=== PATIENT | female | born 1985 | race African-American/Black ===

== ENCOUNTER 2022-03-29 22:22 | Observation (INO) | payer OTHER ==
[2022-03-29 23:24] LABS: #Basophils 0.1 10x3/uL (0.0-0.2); #Eosinphils 0.2 10x3/uL (0.0-0.5); #Monocytes 0.7 10x3/uL (0.0-1.1); #Neutrophils 5.1 10x3/uL (1.5-8.4); %Basophils 0.6 % (0.0-2.0); %Eosinophils 2.6 % (0.0-6.0); %Lymphocytes 28.2 % (18.0-47.0); %Neutrophils 60.1 % (40.0-75.0); Hemoglobin 11.1 g/dL (12.0-15.5); Mean Corpuscular HGB CONC 30.5 g/dL (32.0-36.0); Mean Corpuscular Hemoglobin 24.7 pg (27.0-33.0); Mean Corpuscular Volume 80.9 fl (81.6-98.3); Mean Platelet Volume 11.3 fl (7.4-10.4); Platelet Count 252 10x3/uL (150-450); White Blood Cell (WBC) Count 8.5 10x3/uL (3.5-10.5)
[2022-03-29 23:28] LABS: BHCG - Serum Negative (NEGATIVE); Pregs Control Background? CLEAR/WHITE (CLR/WHITE); Pregs Control Bar Appear? YES (CONTROL BAR)
[2022-03-29 23:34] LABS: ALT (SGPT) 13 U/L (8-55); AST (SGOT) 16 U/L (5-34); Alkaline Phosphatase 75 U/L (40-110); Anion Gap 13 mmol/L (10-20); BUN (Urea Nitrogen) 14 mg/dL (7.0-18.7); Bilirubin, Total 0.4 mg/dL (0.2-1.2); Calc. Creatinine Clearance 0 mL/min (70-130); Calcium 8.9 mg/dL (7.8-10.44); Carbon Dioxide 28 mmol/L (22-29); Chloride 99 mmol/L (98-107); Globulin 3.7 g/dL (2.4-3.5); Glucose 107 mg/dL (70-105); Potassium 3.2 mmol/L (3.5-5.1); Protein, Total 7.7 g/dL (6.0-8.3); Sodium 137 mmol/L (136-145)
[2022-03-30] MEDS ORDERED: Aspirin Chewable 81 MG TAB ONE (00:10)
[2022-03-30] MEDS ORDERED: Enoxaparin Sodium 60 MG/0.6 ML SYRINGE ONE (00:19)
[2022-03-30] MEDS ORDERED: Enoxaparin Sodium 100 MG/ML SYRINGE ONE (00:19)
[2022-03-30] MEDS ORDERED: Nitroglycerin 2% Ointment 1 INCH/1 GM Packet ONE (00:20)
[2022-03-30] MEDS ORDERED: HYDROcodone/Acetaminophen 5/325 mg Tablet PO PRN (00:25)
[2022-03-30] MEDS ORDERED: Ondansetron PF 4 MG/2 ML Vial IVP PRN (00:25)
[2022-03-30] MEDS ORDERED: Acetaminophen 325 MG TAB PO PRN (00:25)
[2022-03-30] MEDS ORDERED: Calcium Carbonate 500 MG ChewTAB PO PRN (00:25)
[2022-03-30] MEDS ORDERED: Senokot S 8.6-50 MG TAB PO PRN (00:25)
[2022-03-30] MEDS ORDERED: Guaifenesin DM 100-10/5 ML UDCUP PO PRN (00:25)
[2022-03-30] MEDS ORDERED: Nitroglycerin 0.4 MG TAB (25 Tab Bottle) SL PRN (00:28)
[2022-03-30] MEDS ORDERED: hydrALAZINE 20 MG/ML VIAL SLOW IVP PRN (00:30)
[2022-03-30] MEDS ORDERED: Potassium Chloride 20 MEQ TAB PO SCH ×2 (00:45→09:15)
[2022-03-30 01:55] VITALS: BMI 55.4
[2022-03-30 02:23] LABS: SARS-CoV-2 NAA Rapid Test Not Detected (NotDetected)
[2022-03-30 06:15] LABS: Anion Gap 14 mmol/L (10-20); BUN (Urea Nitrogen) 13 mg/dL (7.0-18.7); Calc. Creatinine Clearance 231 mL/min (70-130); Calcium 9.4 mg/dL (7.8-10.44); Carbon Dioxide 27 mmol/L (22-29); Cardiac Risk 6.9 (Less than 4.5); Chloride 100 mmol/L (98-107); Cholesterol 201 mg/dl (< 200 Desired); Glucose 128 mg/dL (70-105); HDL Cholesterol 29 mg/dL (>60 Neg Risk); LDL Cholesterol, Calculated 128 mg/dL; Potassium 3.2 mmol/L (3.5-5.1); Sodium 138 mmol/L (136-145); Triglycerides 221 mg/dL (Less than 150)
[2022-03-30 06:31] LABS: CKMB 1.7 ng/mL (0-6.6)
[2022-03-30] MEDS ORDERED: Lisinopril 20 MG TAB PO SCH (09:00)
[2022-03-30] MEDS ORDERED: Famotidine 20 MG TAB PO SCH (09:00)
[2022-03-30] MEDS ORDERED: Hydrochlorothiazide 25 MG TAB PO SCH ×2 (09:00)
[2022-03-30] MEDS ORDERED: Lisinopril/Hydrochlorothiazide 20 mg/12.5 mg Tablet PO SCH (09:00)
[2022-03-30] MEDS ORDERED: Metoprolol Tartrate 25 MG TAB PO SCH (09:00)
[2022-03-30] MEDS ORDERED: Losartan Potassium 50 MG TAB PO SCH (09:00)
[2022-03-30 09:15] LABS: CKMB 1.8 ng/mL (0-6.6)
[2022-03-30] MEDS: Ferrous Sulfate 325 MG TAB PO SCH ×2 (09:44→17:07)
[2022-03-30] MEDS ORDERED: Nitroglycerin 2% Ointment 1 INCH/1 GM Packet TOP SCH ×2 (10:15→21:00)
[2022-03-30 13:28] LABS: Hemoglobin A1c 5.9 % (4.0-6.0)
[2022-03-30 16:39] VITALS: BP 134/80; TEMP 97.9
[2022-03-30] MEDS ORDERED: Enoxaparin Sodium 40 MG/0.4 ML SYRINGE SC SCH (21:00)
[2022-03-31] MEDS ORDERED: Aspirin 81 mg Enteric Coated Tablet PO SCH (09:00)
== END 2022-03-30 17:52 | disposition home or self-care (01) ==
LOC: CSHERS 22:22 → CSHTELE 03-30 01:38
PROVIDERS: ADMIT Student in an Organized Health Care Education/Training Program; ATTEND Internal Medicine
DX: R07.2 Precordial pain (principal); I10 Essential (primary) hypertension; E87.6 Hypokalemia; Z91.19 Patient's noncompliance with other medical treatment and regimen; E66.01 Morbid (severe) obesity due to excess calories; D50.9 Iron deficiency anemia, unspecified; K21.9 Gastro-esophageal reflux disease without esophagitis; Z79.899 Other long term (current) drug therapy; Z20.822 Contact with and (suspected) exposure to COVID-19
CPT/HCPCS: 36415; 71045; 80048; 80053; 80061; 82553; 83036; 84443; 84484; 84703; 85025; 93005; 93010; 93306; 96372; G0378; J1650; U0002

== ENCOUNTER 2023-01-11 21:10 | Observation (INO) | payer OTHER ==
[2023-01-11] MEDS ORDERED: Aspirin Chewable 81 MG TAB ONE (21:34)
[2023-01-11] MEDS ORDERED: Nitroglycerin 0.4 MG TAB 1 EACH ONE (21:35)
[2023-01-11 21:54] LABS: #Eosinphils 0.2 10x3/uL (0.0-0.5); #Monocytes 0.5 10x3/uL (0.0-1.1); #Neutrophils 4.9 10x3/uL (1.5-8.4); %Basophils 0.4 % (0.0-2.0); %Eosinophils 2.8 % (0.0-6.0); %Lymphocytes 28.2 % (18.0-47.0); %Monocytes 5.9 % (0.0-10.0); %Neutrophils 62.3 % (40.0-75.0); Hemoglobin 11.5 g/dL (12.0-15.5); Mean Corpuscular HGB CONC 30.7 g/dL (32.0-36.0); Mean Corpuscular Hemoglobin 24.7 pg (27.0-33.0); Mean Corpuscular Volume 80.4 fl (81.6-98.3); Mean Platelet Volume 11.5 fl (7.4-10.4); Platelet Count 218 10x3/uL (150-450); RBC Distribution Width 13.8 % (11.5-14.5); Red Blood Cell (RBC) Count 4.65 10x6/uL (3.90-5.03); White Blood Cell (WBC) Count 7.9 10x3/uL (3.5-10.5)
[2023-01-11 22:00] LABS: ALT (SGPT) 14 U/L (8-55); AST (SGOT) 18 U/L (5-34); Albumin 3.9 g/dL (3.5-5.0); Alkaline Phosphatase 66 U/L (40-110); Anion Gap 16 mmol/L (10-20); BUN (Urea Nitrogen) 12 mg/dL (7.0-18.7); Bilirubin, Total 0.4 mg/dL (0.2-1.2); Calc. Creatinine Clearance 0 mL/min (70-130); Calcium 8.8 mg/dL (7.8-10.44); Carbon Dioxide 24 mmol/L (22-29); Chloride 103 mmol/L (98-107); Estimated GFR 81; Globulin 3.7 g/dL (2.4-3.5); Glucose 137 mg/dL (70-105); Potassium 3.6 mmol/L (3.5-5.1); Protein, Total 7.6 g/dL (6.0-8.3); Sodium 139 mmol/L (136-145)
[2023-01-11 22:23] LABS: CKMB 2.3 ng/mL (0-6.6)
[2023-01-11] MEDS ORDERED: Metoprolol Tartrate 5 MG/5 ML VIAL ONE (22:26)
[2023-01-11] MEDS ORDERED: Senokot S 8.6-50 MG TAB PO PRN (23:44)
[2023-01-11] MEDS ORDERED: Zolpidem Tartrate 5 MG TAB PO PRN (23:44)
[2023-01-11] MEDS ORDERED: Acetaminophen 325 MG TAB PO PRN (23:44)
[2023-01-11] MEDS ORDERED: Calcium Carbonate 500 MG ChewTAB PO PRN (23:44)
[2023-01-11] MEDS ORDERED: Guaifenesin DM 100-10/5 ML UDCUP PO PRN (23:44)
[2023-01-11] MEDS ORDERED: Ondansetron PF 4 MG/2 ML Vial IVP PRN (23:44)
[2023-01-11] MEDS ORDERED: Nitroglycerin 0.4 MG TAB (25 Tab Bottle) SL PRN (23:47)
[2023-01-12 01:38] VITALS: BMI 53.2
[2023-01-12] MEDS ORDERED: Potassium Chloride 20 MEQ TAB PO SCH ×4 (01:45→10:00)
[2023-01-12] MEDS ORDERED: Carvedilol 3.125 MG TAB PO SCH (01:45)
[2023-01-12] MEDS ORDERED: Amlodipine 5 MG TAB PO SCH (01:45)
[2023-01-12 05:55] LABS: Anion Gap 13 mmol/L (10-20); BUN (Urea Nitrogen) 11 mg/dL (7.0-18.7); Calc. Creatinine Clearance 212 mL/min (70-130); Calcium 9.1 mg/dL (7.8-10.44); Carbon Dioxide 24 mmol/L (22-29); Cardiac Risk 5.9 (Less than 4.5); Chloride 105 mmol/L (98-107); Cholesterol 199 mg/dl (< 200 Desired); Estimated GFR 92; Glucose 112 mg/dL (70-105); HDL Cholesterol 34 mg/dL (>60 Neg Risk); LDL Cholesterol, Calculated 134 mg/dL; Magnesium 2.2 mg/dL (1.6-2.6); Potassium 3.4 mmol/L (3.5-5.1); Sodium 139 mmol/L (136-145); Triglycerides 156 mg/dL (Less than 150)
[2023-01-12 06:31] LABS: CKMB 2.1 ng/mL (0-6.6)
[2023-01-12] MEDS ORDERED: Electrolyte Replacement Protocol 1 EACH FS SCH (07:45)
[2023-01-12] MEDS ORDERED: Carvedilol 12.5 MG TAB PO SCH (08:00)
[2023-01-12 08:03] LABS: Pregnancy Test - Urine (BHCG) Negative (Negative); Pregu Control Background? CLEAR/WHITE (CLR/WHITE); Pregu Control Bar Appear? YES (CONTROL BAR)
[2023-01-12 08:32] LABS: SARS-CoV-2 NAA Rapid Test Not Detected (NotDetected)
[2023-01-12] MEDS ORDERED: Metoprolol Tartrate 25 MG TAB PO SCH (09:00)
[2023-01-12] MEDS ORDERED: Losartan Potassium 50 MG TAB PO SCH ×2 (09:00→13:45)
[2023-01-12] MEDS: Amlodipine 5 MG TAB PO SCH (09:04)
[2023-01-12] MEDS: Aspirin 81 mg Enteric Coated Tablet PO SCH (09:05)
[2023-01-12] MEDS: Hydrochlorothiazide 25 MG TAB PO SCH (09:06)
[2023-01-12 10:25] LABS: CKMB 2.1 ng/mL (0-6.6)
[2023-01-12 11:46] LABS: Hemoglobin A1c 5.7 % (4.0-6.0)
[2023-01-12] MEDS: Carvedilol 25 MG TAB PO SCH (17:25)
[2023-01-13 05:09] LABS: #Eosinphils 0.2 10x3/uL (0.0-0.5); #Monocytes 0.7 10x3/uL (0.0-1.1); #Neutrophils 4.4 10x3/uL (1.5-8.4); %Basophils 0.4 % (0.0-2.0); %Eosinophils 2.9 % (0.0-6.0); %Monocytes 9.3 % (0.0-10.0); %Neutrophils 63.1 % (40.0-75.0); Anion Gap 16 mmol/L (10-20); BUN (Urea Nitrogen) 14 mg/dL (7.0-18.7); Calc. Creatinine Clearance 193 mL/min (70-130); Calcium 9.1 mg/dL (7.8-10.44); Carbon Dioxide 23 mmol/L (22-29); Chloride 104 mmol/L (98-107); Estimated GFR 82; Glucose 109 mg/dL (70-105); Hemoglobin 11.8 g/dL (12.0-15.5); Mean Corpuscular HGB CONC 29.8 g/dL (32.0-36.0); Mean Corpuscular Hemoglobin 24.7 pg (27.0-33.0); Mean Corpuscular Volume 82.8 fl (81.6-98.3); Phosphorus 4.4 mg/dL (2.3-4.7); Platelet Count 228 10x3/uL (150-450); Potassium 3.9 mmol/L (3.5-5.1); RBC Distribution Width 13.9 % (11.5-14.5); Red Blood Cell (RBC) Count 4.78 10x6/uL (3.90-5.03); Sodium 139 mmol/L (136-145)
[2023-01-13 07:07] LABS: Hypochromia SLIGHT = 6-15 cells (100X) (0-5/hpf); Microcytosis SLIGHT = 6-15 cells (100X) (0-5/hpf); Platelet Morphology Comment Appears Adequate
[2023-01-13] MEDS ORDERED: Potassium Chloride 20 MEQ TAB PO SCH (08:00)
[2023-01-13] MEDS ORDERED: Losartan Potassium 50 MG TAB PO SCH (09:00)
[2023-01-13] MEDS: Carvedilol 25 MG TAB PO SCH (09:52)
[2023-01-13] MEDS: Hydrochlorothiazide 25 MG TAB PO SCH (09:52)
[2023-01-13] MEDS: Aspirin 81 mg Enteric Coated Tablet PO SCH (09:53)
[2023-01-13] MEDS: Amlodipine 5 MG TAB PO SCH (09:53)
[2023-01-13 14:53] VITALS: BP 166/92; TEMP 98.7
[2023-01-14] MEDS ORDERED: Topiramate 25 MG TAB PO SCH (09:00)
== END 2023-01-13 13:45 | disposition home or self-care (01) ==
LOC: CSHERS 21:10 → INTOOBSV 23:44 → CSHTELE 23:44 → UNDOADMIN 01-12 01:30
PROVIDERS: ADMIT Student in an Organized Health Care Education/Training Program; ATTEND Nurse Practitioner Family
DX: R07.9 Chest pain, unspecified (principal); I16.0 Hypertensive urgency; I12.9 Hypertensive chronic kidney disease with stage 1 through stage 4 chronic kidney disease, or unspecified chronic kidney disease; N18.2 Chronic kidney disease, stage 2 (mild); E66.01 Morbid (severe) obesity due to excess calories; R73.9 Hyperglycemia, unspecified; R77.8 Other specified abnormalities of plasma proteins; Z68.43 Body mass index [BMI] 50.0-59.9, adult; Z91.199 Patient's noncompliance with other medical treatment and regimen due to unspecified reason; Z79.82 Long term (current) use of aspirin; Z79.899 Other long term (current) drug therapy; Z20.822 Contact with and (suspected) exposure to COVID-19
CPT/HCPCS: 36415; 71045; 80048; 80053; 80061; 81025; 82553; 83036; 83735; 83880; 84100; 84132; 84443; 84484; 85025; 93005; 96372; 96374; G0378; J1650; U0002

== ENCOUNTER 2023-02-21 06:56 | Emergency (ER) | payer OTHER | END 2023-02-21 07:36 | disposition home or self-care (01) | LOC: CSHERS 06:56 | DX: S79.921A Unspecified injury of right thigh, initial encounter (principal); S76.911A Strain of unspecified muscles, fascia and tendons at thigh level, right thigh, initial encounter; I10 Essential (primary) hypertension; W01.0XXA Fall on same level from slipping, tripping and stumbling without subsequent striking against object, initial encounter | CPT/HCPCS: 99283 ==

== ENCOUNTER 2024-12-17 19:09 | Emergency (ER) | payer OTHER, SELFPAY ==
[2024-12-17] MEDS ORDERED: Ketorolac Tromethamine 30 MG (1 mL) VIAL ONE (22:10)
== END 2024-12-17 22:30 | disposition home or self-care (01) ==
LOC: CSHERS 19:09
DX: M10.9 Gout, unspecified (principal); I10 Essential (primary) hypertension
CPT/HCPCS: 96372; 99283; J1885